=== PATIENT | male | born 1995 | race Caucasian/White ===

== ENCOUNTER 2021-03-22 08:43 | Emergency (ER) | payer OTHER ==
[~2021-03-22] VITALS: Ht 182.9 cm; Wt 112.6 kg
== END 2021-03-22 10:30 | disposition home or self-care (01) ==
LOC: ED 08:43
PROC: 0RSKXZZ Reposition Left Shoulder Joint, External Approach (ICD-10-PCS; principal; 2021-03-22)
DX: S43.015A Anterior dislocation of left humerus, initial encounter (principal); X58.XXXA Exposure to other specified factors, initial encounter; Y99.0 Civilian activity done for income or pay
CPT/HCPCS: 23650; 73030; 99283-25; J1170; J2704

== ENCOUNTER 2021-09-01 16:37 | Emergency (ER) | payer OTHER ==
[~2021-09-01] VITALS: Ht 182.9 cm; Wt 95.3 kg
[2021-09-01] MEDS ORDERED: NAPROSYN500 MG PO (17:40)
== END 2021-09-01 18:08 | disposition home or self-care (01) ==
LOC: ED 16:37
DX: S43.015A Anterior dislocation of left humerus, initial encounter (principal); X50.9XXA Other and unspecified overexertion or strenuous movements or postures, initial encounter; Y99.0 Civilian activity done for income or pay
CPT/HCPCS: 23650; 73030; 99152; 99283-25